=== PATIENT | female | born 1995 | race American Indian/Alaskan Native ===

== ENCOUNTER 2017-02-25 13:15 | Emergency (ER) | payer OTHER ==
[2017-02-25 13:25] VITALS: BP 135/75
--- NOTE | 2017-02-25 14:28 | Emergency Department Report ---
Chief Complaint: Skin/Abscess/Foreign Body Stated Complaint: BURNING LIPS Time Seen by Provider: 02/25/17 14:00 - HPI History of Present Illness: vss nad abc intact in ftwr - Exam Vital Signs: Vital Signs 02/25/17 13:21 Temperature 97.8 F Pulse Rate 89 Respiratory 20 Rate Blood Pressure 135/75 O2 Sat by Pulse 100 Oximetry MSE screening note: Focused history and physical exam performed. Due to findings the following was ordered: ED Disposition for MSE Condition: Stable Referrals: PRIMARY CARE, [Primary Care Provider] - 3-5 Days
[2017-02-25] MEDS ORDERED: BENADRYL PO ONE (16:00)
[2017-02-25] MEDS ORDERED: PEPCID PO ONE (16:01)
--- NOTE | 2017-02-25 16:03 | Emergency Department Report ---
ED Allergic Reaction HPI - General Chief complaint: Skin/Abscess/Foreign Body Stated complaint: BURNING LIPS Time Seen by Provider: 02/25/17 14:00 Source: patient Mode of arrival: Ambulatory Limitations: No Limitations - History of Present Illness MD Complaint: other (LIP SWELLING W CHAPPING; HAPPENED YESTERDAY) -: Gradual Exposure: food Symptoms: lip swelling. denies: rash, itching, facial swelling, difficulty swallowing, difficulty breathing, orolingual swelling, hoarseness, syncopy, dizziness, nausea, vomiting, other, abdominal pain Severity: mild Treatment Prior to Arrival: none Previous Allergy History: other (KNOWN ALLERGY TO STRAWBERRYS SHE ATE) - Related Data Previous Rx's Medication Instructions Recorded Last Taken Type predniSONE [Deltasone] 20 mg PO DAILY #5 tablet 02/25/17 Unknown Rx Allergies Allergy/AdvReac Type Severity Reaction Status Date / Time strawberry Allergy Itching Verified 02/25/17 13:26 ED Review of Systems ROS: Stated complaint: BURNING LIPS Other details as noted in HPI Comment: All other systems reviewed and negative ENT: other (LIP SWELLING AND CHAPPING P EATING STRAWBERRYS) ED Past Medical Hx - Past Medical History Previous Medical History?: No - Surgical History Past Surgical History?: No - Social History Smoking Status: Never Smoker Substance Use Type: Alcohol - Medications Home Medications: Home Medications Medication Instructions Recorded Confirmed Last Taken Type predniSONE [Deltasone] 20 mg PO DAILY #5 tablet 02/25/17 Unknown Rx ED Physical Exam - General Limitations: No Limitations General appearance: alert, in no apparent distress - Eye Eye exam: Present: PERRL, EOMI - ENT ENT exam: Present: mucous membranes moist, TM's normal bilaterally - Neck Neck exam: Present: normal inspection, other (MILD LIP SWELLING P EATING STRAWBERRYS WHICH SHE IS ALLERGIC TO) - Respiratory Respiratory exam: Present: normal lung sounds bilaterally. Absent: respiratory distress, wheezes, rales, rhonchi - Cardiovascular Cardiovascular Exam: Present: regular rate - GI/Abdominal GI/Abdominal exam: Present: soft - Rectal Rectal exam: Present: deferred - Extremities Exam Extremities exam: Present: normal inspection - Back Exam Back exam: Present: normal inspection - Neurological Exam Neurological exam: Present: alert, oriented X3 - Psychiatric Psychiatric exam: Present: normal affect, normal mood - Skin Skin exam: Present: warm, dry, intact, other (LIPS CHAPPED) ED Course Vital Signs 02/25/17 13:21 Temperature 97.8 F Pulse Rate 89 Respiratory 20 Rate Blood Pressure 135/75 O2 Sat by Pulse 100 Oximetry - Reevaluation(s) Reevaluation #1: 02/25/17 16:09 ABC INTACT NO RASH/HIVES JUST MILD LIP SWELLING SAT 100 ON RA TAKING PO MEDICATED AND DC HOME W DC POC ED Medical Decision Making - Medical Decision Making ABC INTACT 1 DAY AGO NOTHING DONE AT HOME - Differential Diagnosis ALLERGY Critical care attestation.: If time is entered above; I have spent that time in minutes in the direct care of this critically ill patient, excluding procedure time. ED Disposition Clinical Impression: Allergic reaction Disposition: DC-01 TO HOME OR SELFCARE Is pt being admited?: No Does the pt Need Aspirin: No Condition: Stable Instructions: Food Allergy (ED), Allergies (ED) Additional Instructions: NO STRAWBERRYS MEDS ORDERED TODAY FOLLOW UP WITH PCP WITHIN 3 DAYS FOR RECHECK OVER THE COUNTER BENADRYL FOR ITCHING OR SWELLING HYDRATE WELL WITH WATER Prescriptions: predniSONE [Deltasone] 20 mg PO DAILY #5 tablet Referrals: PRIMARY CARE,MD [Primary Care Provider] - 3-5 Days JOSE LEON MD [Staff Physician] - 3-5 Days Time of Disposition: 16:01
== END 2017-02-25 16:29 | disposition home or self-care (01) ==
LOC: ED 13:15
DX: T78.40XA Allergy, unspecified, initial encounter (principal); Z91.018 Allergy to other foods; X58.XXXA Exposure to other specified factors, initial encounter; Y93.89 Activity, other specified; Y99.8 Other external cause status; Y92.89 Other specified places as the place of occurrence of the external cause
CPT/HCPCS: 96372; 99282; J2930

== ENCOUNTER 2018-04-06 12:50 | Emergency (ER) | payer OTHER ==
[2018-04-06 13:08] VITALS: BP 116/65
--- NOTE | 2018-04-06 13:37 | Emergency Department Report ---
- General Chief Complaint: Earache Stated Complaint: EARS/ALLERGIES Time Seen by Provider: 04/06/18 13:33 Source: patient Mode of arrival: Ambulatory Limitations: No Limitations - History of Present Illness Initial Comments: Patient reports bilateral ear pressure that started one week ago MD Complaint: other (nasal congestion) Onset/Timin -: week(s) Severity: moderate Severity scale (0 -10): 5 Quality: other (clogged) Consistency: constant Improves With: nothing Worsens With: other (nasal breathing) Context: other (unknown) Associated Symptoms: denies other symptoms, nasal congestion. denies: fever, chills, myalgias, diaphoresis, headache, rhinorrhea, sore throat, stiff neck, cough, chest pain, shortness of breath, abdominal pain, nausea, vomiting, diarrhea, dysuria, rash, confusion, right sweats, weight loss, epistaxis, hoarseness, ear pain Treatments Prior to Arrival: "cold medicine" - Related Data Previous Rx's Medication Instructions Recorded Last Taken Type predniSONE [Deltasone] 20 mg PO DAILY #5 tablet 02/25/17 Unknown Rx Fexofenadine HCl [Leidy Allergy] 180 mg PO DAILY #15 tablet 04/06/18 Unknown Rx Fluticasone [Flonase] 1 spray NS QDAY #1 bottle 04/06/18 Unknown Rx Ibuprofen [Ibu] 600 mg PO TID PRN #30 tablet 04/06/18 Unknown Rx Allergies Allergy/AdvReac Type Severity Reaction Status Date / Time strawberry Allergy Itching Verified 02/25/17 13:26 ED Review of Systems ROS: Stated complaint: EARS/ALLERGIES Other details as noted in HPI Constitutional: denies: chills, fever Eyes: denies: eye pain, eye discharge, vision change ENT: other (bilateral ear pressure). denies: ear pain, throat pain, hearing loss, epistaxis, congestion Respiratory: denies: cough, orthopnea, shortness of breath, SOB with exertion, SOB at rest, stridor, wheezing Cardiovascular: denies: chest pain, palpitations Endocrine: no symptoms reported Gastrointestinal: denies: abdominal pain, nausea, vomiting, diarrhea, constipation, hematemesis Genitourinary: denies: urgency, dysuria, discharge Musculoskeletal: denies: back pain, joint swelling, arthralgia Skin: denies: rash, lesions Neurological: denies: headache, weakness, paresthesias Psychiatric: denies: anxiety, depression Hematological/Lymphatic: denies: easy bleeding, easy bruising ED Past Medical Hx - Social History Smoking Status: Never Smoker Substance Use Type: None - Medications Home Medications: Home Medications Medication Instructions Recorded Confirmed Last Taken Type predniSONE [Deltasone] 20 mg PO DAILY #5 tablet 02/25/17 Unknown Rx Fexofenadine HCl [Leidy Allergy] 180 mg PO DAILY #15 tablet 04/06/18 Unknown Rx Fluticasone [Flonase] 1 spray NS QDAY #1 bottle 04/06/18 Unknown Rx Ibuprofen [Ibu] 600 mg PO TID PRN #30 tablet 04/06/18 Unknown Rx ED Physical Exam - General Limitations: No Limitations General appearance: alert, in no apparent distress - Head Head exam: Present: atraumatic, normocephalic - Eye Eye exam: Present: normal appearance, PERRL, EOMI - ENT ENT exam: Present: normal exam, normal orophraynx, mucous membranes moist, TM's normal bilaterally, normal external ear exam, other (swelling and boggy nasal turbinates). Absent: mucous membranes dry - Neck Neck exam: Present: normal inspection, full ROM - Respiratory Respiratory exam: Present: normal lung sounds bilaterally. Absent: respiratory distress, wheezes, rales, rhonchi, stridor, chest wall tenderness, accessory muscle use, decreased breath sounds, prolonged expiratory - Cardiovascular Cardiovascular Exam: Present: regular rate, normal rhythm, normal heart sounds. Absent: bradycardia, systolic murmur, diastolic murmur, rubs, gallop - Neurological Exam Neurological exam: Present: alert, oriented X3, normal gait, reflexes normal. Absent: motor sensory deficit - Psychiatric Psychiatric exam: Present: normal affect, normal mood - Skin Skin exam: Present: warm, dry, intact, normal color. Absent: rash ED Course Vital Signs 04/06/18 13:07 Temperature 97.7 F Pulse Rate 85 Respiratory 18 Rate Blood Pressure 116/65 O2 Sat by Pulse 99 Oximetry ED Medical Decision Making - Medical Decision Making During the course of ED, all other systems are unremarkable except for documentation in HPI. Patient was sent home with prescriptions for Leidy, Flonase and Ibuprofen, instructed to follow up with the selective referral given at discharge. She verbalized understanding - Differential Diagnosis Allergic Rhinitis, URI Critical care attestation.: If time is entered above; I have spent that time in minutes in the direct care of this critically ill patient, excluding procedure time. ED Disposition Clinical Impression: Allergic rhinitis Qualifiers: Allergic rhinitis trigger: unspecified Allergic rhinitis seasonality: unspecified Qualified Code(s): J30.9 - Allergic rhinitis, unspecified Disposition: - TO HOME OR SELFCARE Is pt being admited?: No Does the pt Need Aspirin: No Condition: Stable Instructions: Allergic Rhinitis (ED) Additional Instructions: Take medication as directed. Follow up with the selective referral given at discharge Prescriptions: Fexofenadine HCl [Leidy Allergy] 180 mg PO DAILY #15 tablet Fluticasone [Flonase] 1 spray NS QDAY #1 bottle Ibuprofen [Ibu] 600 mg PO TID PRN #30 tablet PRN Reason: Pain, Mild (1-3) Referrals: PRIMARY CAREMD [Primary Care Provider] - 3-5 Days BAR PALMER JR, MD [Staff Physician] - 3-5 Days PARAMJIT SORTO MD [Staff Physician] - 3-5 Days Forms: Work/School Release Form(ED) Time of Disposition: 13:45
== END 2018-04-06 13:55 | disposition home or self-care (01) ==
LOC: ED 12:50
DX: J30.9 Allergic rhinitis, unspecified (principal)
CPT/HCPCS: 99282

== ENCOUNTER 2018-07-20 21:20 | Emergency (ER) | payer SELFPAY ==
[2018-07-20 21:41] VITALS: BP 136/65
[2018-07-20 23:02] LABS: Bacteria,Urine 1+ /HPF (Negative); Bilirubin,Urine NEG (Negative); Blood,Urine NEG (Negative); Color,Urine Yellow (Yellow); Mucus,Urine 2+ /HPF; Protein,Urine <15 mg/dL mg/dL (Negative); Urobilinogen,Urine < 2.0 mg/dL (<2.0)
[2018-07-20 23:08] LABS: HCG Qualitative,Urine Negative (Negative)
--- NOTE | 2018-07-21 01:03 | Emergency Department Report ---
- General Chief Complaint: Upper Respiratory Infection Stated Complaint: COUGH,PREG TEST Time Seen by Provider: 07/21/18 00:12 Source: patient Mode of arrival: Ambulatory Limitations: No Limitations - History of Present Illness Initial Comments: Pt is a 22 yo female who presents to the ED with c/o a dry cough that began a week ago. She has associated congestion, rhinorrhea, and itchy throat. She denies any fever. she has been taking theraflu without any relief. she states she does get seasonal allergies but has not taken anything this season. Pt states she also has had dysuria for 2-3 days. she denies any abd pain, N/V, or vaginal discharge. she denies any PMHx. no medication allergies. non smoker, occ ETOH use, no drug use. - Related Data Previous Rx's Medication Instructions Recorded Last Taken Type predniSONE [Deltasone] 20 mg PO DAILY #5 tablet 02/25/17 Unknown Rx Fexofenadine HCl [Leidy Allergy] 180 mg PO DAILY #15 tablet 04/06/18 Unknown Rx Fluticasone [Flonase] 1 spray NS QDAY #1 bottle 04/06/18 Unknown Rx Ibuprofen [Ibu] 600 mg PO TID PRN #30 tablet 04/06/18 Unknown Rx Benzonatate [Tessalon Perles] 100 mg PO Q8HR PRN #20 capsule 07/21/18 Unknown Rx Fluticasone [Flonase] 1 spray NS QDAY #1 bottle 07/21/18 Unknown Rx Loratadine [Claritin] 10 mg PO DAILY #30 tablet 07/21/18 Unknown Rx Nitrofurantoin Citrus/M-Cryst 100 mg PO BID 5 Days #10 capsule 07/21/18 Unknown Rx [Macrobid CAP] Allergies Allergy/AdvReac Type Severity Reaction Status Date / Time strawberry Allergy Itching Verified 02/25/17 13:26 ED Review of Systems ROS: Stated complaint: COUGH,PREG TEST Other details as noted in HPI Comment: All other systems reviewed and negative ED Past Medical Hx - Past Medical History Previous Medical History?: No - Surgical History Past Surgical History?: No - Social History Smoking Status: Never Smoker - Medications Home Medications: Home Medications Medication Instructions Recorded Confirmed Last Taken Type predniSONE [Deltasone] 20 mg PO DAILY #5 tablet 02/25/17 Unknown Rx Fexofenadine HCl [Leidy Allergy] 180 mg PO DAILY #15 tablet 04/06/18 Unknown Rx Fluticasone [Flonase] 1 spray NS QDAY #1 bottle 04/06/18 Unknown Rx Ibuprofen [Ibu] 600 mg PO TID PRN #30 tablet 04/06/18 Unknown Rx Benzonatate [Tessalon Perles] 100 mg PO Q8HR PRN #20 capsule 07/21/18 Unknown Rx Fluticasone [Flonase] 1 spray NS QDAY #1 bottle 07/21/18 Unknown Rx Loratadine [Claritin] 10 mg PO DAILY #30 tablet 07/21/18 Unknown Rx Nitrofurantoin Citrus/M-Cryst 100 mg PO BID 5 Days #10 capsule 07/21/18 Unknown Rx [Macrobid CAP] ED Physical Exam - General Limitations: No Limitations General appearance: alert, in no apparent distress - Head Head exam: Present: atraumatic, normocephalic - Eye Eye exam: Present: normal appearance - ENT ENT exam: Present: normal orophraynx, other (pale, boggy turbinates bilaterally with clear nasal discharge, no sinus TTP) - Respiratory Respiratory exam: Present: normal lung sounds bilaterally. Absent: respiratory distress, wheezes, rales, rhonchi, stridor, chest wall tenderness, accessory muscle use, decreased breath sounds, prolonged expiratory - Cardiovascular Cardiovascular Exam: Present: regular rate, normal rhythm, normal heart sounds. Absent: systolic murmur, diastolic murmur, rubs, gallop - Neurological Exam Neurological exam: Present: alert, oriented X3 - Psychiatric Psychiatric exam: Present: normal affect, normal mood - Skin Skin exam: Present: warm, dry, intact ED Course Vital Signs 07/20/18 07/20/18 07/21/18 21:28 22:10 01:30 Temperature 98.9 F 98.9 F 98.9 F Pulse Rate 102 H 95 H 95 H Respiratory 18 18 18 Rate Blood Pressure 136/65 136/65 O2 Sat by Pulse 100 100 100 Oximetry ED Medical Decision Making - Medical Decision Making Pt is a 22 yo female who presents to the ED with c/o a dry cough that began a week ago. She has associated congestion, rhinorrhea, and itchy throat. She d enies any fever. she has been taking theraflu without any relief. she states she does get seasonal allergies but has not taken anything this season. Pt states she also has had dysuria for 2-3 days. she denies any abd pain, N/V, or vaginal discharge. she denies any PMHx. no medication allergies. non smoker, occ ETOH use, no drug use. pt has clear breath sounds bilaterally, pt is afebrile, normal oxygen saturation, on exam has pale boggy turbinates, pt given flonase and allergy med. pt UA with evidence of UTI. pt given abx. advised to take all meds as prescribed. drink plenty of water. follow up with PCP in the next 2-3 days. return to the ED for any new or worsening symptoms. Critical care attestation.: If time is entered above; I have spent that time in minutes in the direct care of this critically ill patient, excluding procedure time. ED Disposition Clinical Impression: Seasonal allergies Allergic rhinitis Qualifiers: Allergic rhinitis trigger: unspecified Allergic rhinitis seasonality: seasonal Qualified Code(s): J30.2 - Other seasonal allergic rhinitis UTI (urinary tract infection) Qualifiers: Urinary tract infection type: acute cystitis Hematuria presence: without hematuria Qualified Code(s): N30.00 - Acute cystitis without hematuria Disposition: TO HOME OR SELFCARE Is pt being admited?: No Does the pt Need Aspirin: No Condition: Stable Instructions: Urinary Tract Infection in Women (ED), Allergic Rhinitis (ED) Additional Instructions: please take all medication as prescribed. continue drinking plenty of water. follow up with a primary care doctor in the next 2-3 days. return to the emergency room for any new or worsening symptoms. Prescriptions: Loratadine [Claritin] 10 mg PO DAILY #30 tablet Fluticasone [Flonase] 1 spray NS QDAY #1 bottle Nitrofurantoin Citrus/M-Cryst [Macrobid CAP] 100 mg PO BID 5 Days #10 capsule Benzonatate [Tessalon Perles] 100 mg PO Q8HR PRN #20 capsule PRN Reason: Cough Referrals: SAURABH OLIVAS MD [Primary Care Provider] - 2-3 Days Forms: Work/School Release Form(ED) Time of Disposition: 01:02 Print Language: LIBERIAN
== END 2018-07-21 01:31 | disposition home or self-care (01) ==
LOC: ED 21:20
DX: J30.2 Other seasonal allergic rhinitis (principal); N30.00 Acute cystitis without hematuria
CPT/HCPCS: 81001; 81025

== ENCOUNTER 2021-02-07 09:56 | Emergency (ER) | payer SELFPAY ==
[2021-02-07 10:22] VITALS: BP 142/76
--- NOTE | 2021-02-07 11:32 | Emergency Department Report ---
ED ENT HPI - General Chief complaint: Dental/Oral Stated complaint: TOOTH ACHE Time Seen by Provider: 02/07/21 11:13 Source: patient Mode of arrival: Ambulatory Limitations: No Limitations - History of Present Illness Initial comments: Patient is a 25-year-old female presents emergency room complaints of right upper dental pain that began a couple days ago. She states it has been multiple years since she has seen a dentist. She denies any fever, nausea, vomiting, chills, facial swelling, difficulty swallowing, difficulty breathing. No allergies to medicines - Related Data Previous Rx's Medication Instructions Recorded Last Taken Type predniSONE [Deltasone] 20 mg PO DAILY #5 tablet 02/25/17 Unknown Rx Fexofenadine HCl [Leidy Allergy] 180 mg PO DAILY #15 tablet 04/06/18 Unknown Rx Fluticasone [Flonase] 1 spray NS QDAY #1 bottle 04/06/18 Unknown Rx Ibuprofen [Ibu] 600 mg PO TID PRN #30 tablet 04/06/18 Unknown Rx Benzonatate [Tessalon Perles] 100 mg PO Q8HR PRN #20 capsule 07/21/18 Unknown Rx Fluticasone [Flonase] 1 spray NS QDAY #1 bottle 07/21/18 Unknown Rx Loratadine (Nf) [Claritin] 10 mg PO DAILY #30 tablet 07/21/18 Unknown Rx Nitrofurantoin [place]/M-Cryst 100 mg PO BID 5 Days #10 capsule 07/21/18 Unknown Rx [Macrobid CAP] Chlorhexidine Mouthwash [Peridex] 15 ml MM BID #1 bottle 02/07/21 Unknown Rx Naproxen [EC-Naproxen] 375 mg PO BID PRN #20 tablet. 02/07/21 Unknown Rx Allergies Allergy/AdvReac Type Severity Reaction Status Date / Time strawberry Allergy Itching Verified 02/07/21 10:22 ED Dental HPI - General Chief complaint: Dental/Oral Stated complaint: TOOTH ACHE Time Seen by Provider: 02/07/21 11:13 Source: patient Mode of arrival: Ambulatory Limitations: No Limitations - Related Data Previous Rx's Medication Instructions Recorded Last Taken Type predniSONE [Deltasone] 20 mg PO DAILY #5 tablet 02/25/17 Unknown Rx Fexofenadine HCl [Leidy Allergy] 180 mg PO DAILY #15 tablet 04/06/18 Unknown Rx Fluticasone [Flonase] 1 spray NS QDAY #1 bottle 04/06/18 Unknown Rx Ibuprofen [Ibu] 600 mg PO TID PRN #30 tablet 04/06/18 Unknown Rx Benzonatate [Tessalon Perles] 100 mg PO Q8HR PRN #20 capsule 07/21/18 Unknown Rx Fluticasone [Flonase] 1 spray NS QDAY #1 bottle 07/21/18 Unknown Rx Loratadine (Nf) [Claritin] 10 mg PO DAILY #30 tablet 07/21/18 Unknown Rx Nitrofurantoin [place]/M-Cryst 100 mg PO BID 5 Days #10 capsule 07/21/18 Unknown Rx [Macrobid CAP] Chlorhexidine Mouthwash [Peridex] 15 ml MM BID #1 bottle 02/07/21 Unknown Rx Naproxen [EC-Naproxen] 375 mg PO BID PRN #20 tablet. 02/07/21 Unknown Rx Allergies Allergy/AdvReac Type Severity Reaction Status Date / Time strawberry Allergy Itching Verified 02/07/21 10:22 ED Review of Systems ROS: Stated complaint: TOOTH ACHE Other details as noted in HPI Comment: All other systems reviewed and negative ED Past Medical Hx - Social History Smoking Status: Never Smoker - Medications Home Medications: Home Medications Medication Instructions Recorded Confirmed Last Taken Type predniSONE [Deltasone] 20 mg PO DAILY #5 tablet 02/25/17 Unknown Rx Fexofenadine HCl [Leidy Allergy] 180 mg PO DAILY #15 tablet 04/06/18 Unknown Rx Fluticasone [Flonase] 1 spray NS QDAY #1 bottle 04/06/18 Unknown Rx Ibuprofen [Ibu] 600 mg PO TID PRN #30 tablet 04/06/18 Unknown Rx Benzonatate [Tessalon Perles] 100 mg PO Q8HR PRN #20 capsule 07/21/18 Unknown Rx Fluticasone [Flonase] 1 spray NS QDAY #1 bottle 07/21/18 Unknown Rx Loratadine (Nf) [Claritin] 10 mg PO DAILY #30 tablet 07/21/18 Unknown Rx Nitrofurantoin [place]/M-Cryst 100 mg PO BID 5 Days #10 capsule 07/21/18 Unknown Rx [Macrobid CAP] Chlorhexidine Mouthwash [Peridex] 15 ml MM BID #1 bottle 02/07/21 Unknown Rx Naproxen [EC-Naproxen] 375 mg PO BID PRN #20 tablet. 02/07/21 Unknown Rx ED Physical Exam - General Limitations: No Limitations General appearance: alert, in no apparent distress - Head Head exam: Present: atraumatic, normocephalic - Eye Eye exam: Present: normal appearance - ENT ENT exam: Present: mucous membranes moist, other (mild right upper molar ttp, no facial edema, no gum edema or induration, uvula is midline, no uvular edema or deviation, no trismus, no tongue elevation, no muffled voice, no submandibular edema) - Respiratory Respiratory exam: Absent: respiratory distress, accessory muscle use - Neurological Exam Neurological exam: Present: alert, oriented X3 - Psychiatric Psychiatric exam: Present: normal affect, normal mood - Skin Skin exam: Present: warm, dry, intact ED Course Vital Signs 02/07/21 10:20 Temperature 98.6 F Pulse Rate 85 Respiratory 20 Rate Blood Pressure 142/76 [Left] O2 Sat by Pulse 100 Oximetry ED Medical Decision Making - Medical Decision Making Patient is a 25-year-old female presents emergency room complaints of right upper dental pain that began a couple days ago. She states it has been multiple years since she has seen a dentist. She denies any fever, nausea, vomiting, chills, facial swelling, difficulty swallowing, difficulty breathing. No allergies to medicines. Vitals are stable. On exam:mild right upper molar ttp, no facial edema, no gum edema or induration, uvula is midline, no uvular edema or deviation, no trismus, no tongue elevation, no muffled voice, no submandibular edema. No signs of dental abscess, facial abscess, facial cellulitis, Sixto's at this time. Patient given prescription for medications. Patient given list of community dental clinics. Advised patient Please use medication as prescribed. May gargle with warm salt water. May use Anbesol or Orajel [id number]. Follow-up with a dentist. Return to emergency room for any new or worsening symptoms. Critical care attestation.: If time is entered above; I have spent that time in minutes in the direct care of this critically ill patient, excluding procedure time. ED Disposition Clinical Impression: Dentalgia Disposition: 01 HOME / SELF CARE / HOMELESS Is pt being admited?: No Does the pt Need Aspirin: No Condition: Stable Additional Instructions: Please use medication as prescribed. May gargle with warm salt water. May use Anbesol or Orajel [id number]. Follow-up with a dentist. Return to emergency room for any new or worsening symptoms. Prescriptions: Naproxen [EC-Naproxen] 375 mg PO BID PRN #20 tablet. PRN Reason: pain Chlorhexidine Mouthwash [Peridex] 15 ml MM BID #1 bottle Referrals: PRIMARY CARE, [Primary Care Provider] - 3-5 Days [facility] [Outside] - 3-5 Days Time of Disposition: 11:33 Print Language: CYMRAES
== END 2021-02-07 12:04 | disposition home or self-care (01) ==
LOC: ED 09:56
DX: K08.89 Other specified disorders of teeth and supporting structures (principal); Z91.018 Allergy to other foods
CPT/HCPCS: 99282

== ENCOUNTER 2021-10-15 12:57 | Emergency (ER) | payer SELFPAY ==
[2021-10-15 13:31] VITALS: BP 129/77
== END 2021-10-15 21:17 | disposition left against medical advice (07) ==
LOC: ED 12:57
DX: Z32.00 Encounter for pregnancy test, result unknown (principal); Z53.21 Procedure and treatment not carried out due to patient leaving prior to being seen by health care provider